=== PATIENT | female | born 1970 | race African-American/Black ===

== ENCOUNTER 2017-02-11 11:33 | Emergency (ER) | payer OTHER ==
[~2017-02-11] VITALS: Ht 165.1 cm; Wt 63.5 kg
[~2017-02-11 11:33] MED LIST: NORCO 5-325 TA1 EACH PO; PENICILLIN V P500 MG PO
[2017-02-11] MEDS ORDERED: DELTASONE20 MG PO (12:59)
[2017-02-11] MEDS ORDERED: CLEOCIN HCL150 MG PO (12:59)
[2017-02-11 13:17] VITALS: BP 105/63
== END 2017-02-11 13:18 ==
LOC: ER 11:33
DX: K02.9 Dental caries, unspecified (principal); J45.909 Unspecified asthma, uncomplicated

== ENCOUNTER 2017-11-03 11:04 | Emergency (ER) | payer OTHER ==
[~2017-11-03] VITALS: Ht 165.1 cm; Wt 65.9 kg
[~2017-11-03 11:04] MED LIST changes: +CLEOCIN HCL150 MG PO; +DELTASONE20 MG PO
[2017-11-03] MEDS ORDERED: NORCO 5-325 TA1 EACH PO (12:46)
== END 2017-11-03 13:11 | disposition home or self-care (01) ==
LOC: ER 11:04
DX: S83.92XA Sprain of unspecified site of left knee, initial encounter (principal); J45.909 Unspecified asthma, uncomplicated; W00.9XXA Unspecified fall due to ice and snow, initial encounter; Y93.89 Activity, other specified; Y92.89 Other specified places as the place of occurrence of the external cause; Y99.8 Other external cause status

== ENCOUNTER 2020-08-11 10:41 | Emergency (ER) | payer OTHER ==
[~2020-08-11] VITALS: Ht 165.1 cm; Wt 63.5 kg
[2020-08-11] MEDS ORDERED: MOBIC7.5 MG PO (13:07)
[2020-08-11] MEDS ORDERED: CYCLOBENZAPRINE5 MG PO (13:07)
[2020-08-11 13:24] VITALS: BP 130/78
== END 2020-08-11 13:39 | disposition home or self-care (01) ==
LOC: ER 10:41
DX: R51.9 Headache, unspecified (principal); M54.9 Dorsalgia, unspecified; M54.2 Cervicalgia; J45.909 Unspecified asthma, uncomplicated; Z79.899 Other long term (current) drug therapy; V49.9XXA Car occupant (driver) (passenger) injured in unspecified traffic accident, initial encounter; Y93.89 Activity, other specified; Y92.89 Other specified places as the place of occurrence of the external cause; Y99.8 Other external cause status

== ENCOUNTER 2021-10-23 13:25 | Emergency (ER) | payer OTHER ==
[~2021-10-23] VITALS: Ht 165.1 cm; Wt 65.8 kg
[~2021-10-23 13:25] MED LIST changes: +CYCLOBENZAPRINE5 MG PO; +MOBIC7.5 MG PO
[2021-10-23 15:57] VITALS: BP 125/73
== END 2021-10-23 15:57 | disposition home or self-care (01) ==
LOC: ER 13:25
PROVIDERS: Emergency Medicine
DX: U07.1 COVID-19 (principal); J45.909 Unspecified asthma, uncomplicated